=== PATIENT | male | born 1970 | race Two or more races ===

== ENCOUNTER 2025-06-26 10:35 | Day surgery (SDC) | payer OTHER ==
[2025-06-22 15:44] LABS: Hematocrit 42.8 % (41.0-53.0); Hemoglobin 14.3 g/dL (13.5-17.5); Mean Corpuscular Hemoglobin 29.6 pg (28.0-32.0); Mean Corpuscular Volume 88.3 fL (80.0-100.0); Nucleated Red Blood Cells % 0.0 %
[2025-06-22 15:47] LABS: Urine Protein, UAD Negative (Negative)
[2025-06-22 16:14] LABS: Alanine Aminotransferase 31 U/L (7-40); Alkaline Phosphatase 59 U/L (46-116); Anion Gap 12 (5-15); BUN/Creatinine Ratio 17.9 (10.0-20.0); Blood Urea Nitrogen 17 mg/dL (9-23); Calcium 9.7 mg/dL (8.7-10.4); Carbon Dioxide 23 mmol/L (20-31); Chloride 104 mmol/L (98-107); Glucose 95 mg/dL (74-106); Potassium 4.8 mmol/L (3.5-5.1); Sodium 139 mmol/L (136-145); Total Protein 7.8 g/dL (5.7-8.2)
[2025-06-22 16:15] LABS: Albumin 4.6 g/dL (3.2-4.8); Bilirubin, Total 0.5 mg/dL (0.2-1.0)
[2025-06-22 16:21] LABS: INR 1.02 (0.9-1.15); Partial Thromboplastin Time 30.3 SEC (24.5-34.5); Prothrombin Time 10.8 sec (9.3-11.8)
[~2025-06-26] VITALS: Ht 195.6 cm; Wt 190.5 kg
[~2025-06-26 10:35] MED LIST: GLIM4TAB42 PO; LISI40TA16 PO; METF-372 PO; NIFE1TAB30 PO; PANT40TA2 PO; PIO30T PO; SEMA2INJ3 SC; SIMV10TA20 PO
[2025-06-26] MEDS ORDERED: ONDANSETRON HCL 4 MG/2 ML VIAL ONE (13:08)
[2025-06-26] MEDS ORDERED: METOCLOPRAMIDE HCL 5MG/ml INJ 2ml VIAL ONE (13:08)
[2025-06-26] MEDS ORDERED: PROPOFOL 10 MG/ML 20 ML IV ONE ×2 (13:08→13:15)
[2025-06-26 13:22] VITALS: PULSE 76; RESP 15; TEMP 98.3; O2SAT 94
--- NOTE | 2025-06-26 13:48 | DVHOP2 ---
Operative Report DATE OF OPERATION: 06/26/25 PROCEDURE: Colonoscopy with cold biopsy polypectomy. PREOPERATIVE INDICATION: The patient is a 54 -year-old male undergoing colonoscopy for colon cancer screening POSTOPERATIVE DIAGNOSES: 1. There was a 2 mm benign-appearing polyp seen on the ileocecal valve that was seen and removed by cold biopsy forceps and another 2 mm proximal ascending colon polyp that was seen and removed by cold biopsy forceps 2. There were two hyperplastic type transverse colon polyps that were seen and removed via cold biopsy forceps 3. Patient had moderate scattered diverticular disease most prominent in the sigmoid 4. 1+ internal hemorrhoids otherwise normal examination up to the cecum and terminal ileum PROCEDURE PERFORMED BY: Eloise Shore M.D. SCOPE: Olympus videocolonoscope. ASA CLASS: 3 PREOPERATIVE MEDICATIONS: Mac alan, Howard gagnon PROCEDURE IN DETAIL: After obtaining an informed consent, the patient was placed on left lateral decubitus position. He was then sedated with the above medications. A rectal examination was performed that was normal. The colonoscope was then passed through the anus into the rectosigmoid and through the descending, transverse, and ascending colon up to the cecum with visualization of the appendiceal orifice, base of the cecum and the ileocecal valve. The colonoscope was then withdrawn. The distal 3-5 cm of the terminal ileum were normal On the ileocecal valve there was a 1-2 mm benign-appearing polyp that was seen and removed by cold biopsy forceps In the proximal ascending colon there was another 2 mm benign-appearing polyp that was seen and removed by cold biopsy forceps In the mid to distal transverse there were two hyperplastic type benign- appearing polyps that were seen and removed by cold biopsy forceps Patient had scattered diverticular disease most prominent in the sigmoid On retroflexion and straight on view he had 1+ slightly engorged internal hemorrhoids The patient tolerated the procedure well without difficulty. WITHDRAWAL TIME: 9 minutes QUALITY OF THE PREP: Prosperity Bowel Prep score: 9. COMPLICATIONS : None SPECIMENS: Ileocecal valve and ascending colon polyps Transverse colon polyps DISPOSITION: Stable D/C to home PLAN: 1. Repeat colonoscopy base on biopsy result likely in 3-5 years 2. Resume GI soft diet advance as tolerated 3. Increase fluid and fiber intake 4. Local anorectal hemorrhoidal care 5. Outpatient follow up with me in 4-6 weeks to review results and discuss further management ELOISE SHORE MD Jun 26, 2025 13:48
[2025-06-26 14:05] VITALS: BP 120/74; PULSE 82; RESP 15; O2SAT 97
== END 2025-06-26 14:16 | disposition home or self-care (01) ==
LOC: GI 10:35
PROVIDERS: ATTEND Internal Medicine Gastroenterology
DX: Z12.11 Encounter for screening for malignant neoplasm of colon (principal); K57.30 Diverticulosis of large intestine without perforation or abscess without bleeding; D12.3 Benign neoplasm of transverse colon; K64.0 First degree hemorrhoids; I10 Essential (primary) hypertension; Z79.899 Other long term (current) drug therapy; Z98.890 Other specified postprocedural states
CPT/HCPCS: 36415; 45380; 80053; 81001; 82962; 85025; 85610; 85730; 88305; J2405; J2704; J2765; J7030